=== PATIENT | female | born 1940 | race Caucasian/White ===

== ENCOUNTER 2017-10-25 15:27 | Emergency (ER) | payer MEDICARE, OTHER ==
--- NOTE | 2017-10-26 08:43 | CT ---
INDICATION: Lightheaded, increased blood pressure. CT HEAD WITHOUT CONTRAST: Serial contiguous 2.5 and 5-mm sections were obtained through the brain, 10/25/2017. No comparisons were available. Total Exam DLP = 949.36 mGy-cm. No shift of midline structures or ventricular abnormalities were identified. There are noted calcifications in the internal carotid and vertebral arteries. There is suggestion of a few tiny areas of decreased density in the white matter periventricular, suggesting minimal microvascular disease. However, no other abnormal areas of density could be identified. No bleeding site or hematoma was seen. The orbits appear to be grossly intact. Paranasal sinuses and mastoid air cells appear to be well aerated. No cranial abnormality was seen. IMPRESSION: 1. No acute intracranial abnormality. 2. Minimal microvascular disease with calcifications noted in the internal carotid and vertebral arteries. MTDD
--- NOTE | 2017-10-26 11:00 | CR ---
INDICATION: Lightheaded. CHEST: An AP upright portable view of the chest was obtained, 10/25/2017 - no comparisons. The heart appears enlarged with LVE. The aorta is tortuous with calcification in the arch. Overlying EKG leads are noted. Diminished bone density is suggested, compatible with osteoporosis - correlate clinically. A definite active infiltrate or effusion was not identified. Upper lung field pulmonary vasculature is minimally prominent to normal. This may represent a minimal or early CHF and should be correlated clinically. There appears to have been a mastectomy on the right and axillary node dissection on the right, compatible with previous right breast CA. No definite evidence of metastatic disease was identified. IMPRESSION: ASHD, probable cardiomegaly, question minimal or early CHF. Findings may be emphasized by poor inspiration - full inspiration PA and lateral views of the chest recommended when clinically possible, for further evaluation. MTDD
--- NOTE | 2017-10-27 01:43 | ER ---
DATE SEEN: 10/25/2017 TIME SEEN: The patient was seen at 1730 hours. /[id number] MÓNICA/CORBY WILL
--- NOTE | 2017-10-27 11:56 | ER ---
DATE SEEN: 10/25/2017 HISTORY OF PRESENT ILLNESS: This 77-year-old woman was attended by the daughter and daughter notes she was lightheaded. She was brought to the hospital for further evaluation. She is basically living alone, although her grandson "lives with her". The grandson works in the daytime and is with his grandmother in the evenings. No history of falls. No history of fever. No history of sore throat, cough, sinus congestion, chest pain, irregular heartbeat, abdominal discomfort, pedal edema. Daughter thinks perhaps she might be dehydrated. She noticed when her mother sat down she was short of breath and she had anxiety. 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 The school staff consequently brought her to the hospital for further evaluation. They noted her heart rate was 122, elevated, and she had a blood pressure of 180/110 at the school. PAST MEDICAL HISTORY: No diabetes, heart disease, myocardial infarction, no strokes, no recent illnesses or coughs or colds or pneumonia. Previous breast cancer, dyslipidemia, depression and arrhythmia, the family did not know what kind of arrhythmia she had, but it was very suggestive of ventricular arrhythmia and that is why she had flecainide and this can cause irregularity itself, and dermatitis. REVIEW OF SYSTEMS: Negative except as noted above in the HPI. ALLERGIES: Sulfa and diltiazem. MEDICATIONS: 1. Calcium carbonate. 2. Valproic acid. 3. Triamcinolone cream. 4. Aspirin. 5. Vitamin D. 6. Flecainide 50 mg b.i.d. 7. Hydrochlorothiazide 50 daily. 8. Multivitamin. 9. Potassium chloride 20 mEq daily. 10.Buspirone 10 mg. 11.Atorvastatin/Lipitor 20 mg daily. 12.Tamoxifen 20 mg daily. PHYSICAL EXAMINATION: VITAL SIGNS: Blood pressure 138/88, heart rate 96, respirations 20, repeat blood pressure 149/88, temperature 98.7, heart rate 120. Blood pressure checks - supine 130/73, 149/85, I don't see the list of orthostatic, but other blood pressure 149/78 and 133/40. Nurse's noted 102, 103 heart rate, on basis of the monitor, pulse was 120's electronic. Temperature 36.6 degrees centigrade. She has a BMI of 31.5 kg/m2. GENERAL: She is a pleasant woman, who gets lightheaded when she sits up and lies down. HEENT: TMs negative. Pharynx is mildly dry. Mucosa dry. No bruits in neck. No cervical adenopathy. No thyromegaly. LUNGS: Clear. There are no rales in the lungs. HEART: S1, S2. There is sinus tachycardia and increases with sitting up. ABDOMEN: Soft. No guarding. No abdominal discomfort. No bruits. EXTREMITIES: Lower extremities without abnormality. No pedal edema. Dorsalis pedis pulses and radial pulses intact and good. No CVA percussion tenderness. WORKING DIAGNOSIS: Probably dehydration causing orthostatism and lightheadedness. A CT was performed, but had no evidence for CVA. LABORATORY FINDINGS: Not very revealing, no evidence for anemia, which is encouraging at 13.8 hemoglobin, white count was normal 6800, with normal PMNs 75, lymphs 17, monos 7. CMP was normal relatively speaking sodium 140, potassium 3.5 (low normal potassium), chloride 104, carbon dioxide 29, BUN 18, creatinine 0.7, GFR greater than 60. BUN and creatinine ratio confirms dehydration at 25.7. AST 27-not significant, Troponin less than 0.017 and BNP is 889 (not significant for her age). Urinalysis normal. Specific gravity 1.010 and pH 8.0. ASSESSMENT: Orthostatism secondary to dehydration. No evidence for CVA. No evidence for myocardial infarction, anemia, or GI bleed. Chest x-ray with cardiomegaly. Mild cephalization. An EKG demonstrates sinus tachycardia, right bundle branch block, left anterior herve block, left ventricular hypertrophy. CT of the head did not reveal any abnormalities. No CVA. No evidence for urinary tract infection. The patient was treated with rehydration. Her orthostatism stabilized. No evidence for myocardial infarction and no significant congestive heart failure. No CVA. Patient did well with IV rehydration in the emergency department and lightheadedness relented. The patient is to drink 2 L of fluid a day. Follow up with doctor in a week. No medications prescribed. /[id number] MÓNICA/CORBY
== END 2017-10-25 20:00 | disposition home or self-care (01) ==
LOC: FB.ED 15:27
DX: I95.1 Orthostatic hypotension (principal); E86.0 Dehydration; R00.0 Tachycardia, unspecified; I51.7 Cardiomegaly; I45.10 Unspecified right bundle-branch block; I44.4 Left anterior fascicular block; E78.5 Hyperlipidemia, unspecified; Z88.2 Allergy status to sulfonamides; Z88.8 Allergy status to other drugs, medicaments and biological substances; Z79.899 Other long term (current) drug therapy; Z85.3 Personal history of malignant neoplasm of breast
CPT/HCPCS: 36415; 70450; 71045; 80053; 81001; 83880; 84484; 85025; 93005; 99285

== ENCOUNTER 2019-06-12 07:55 | Day surgery (SDC) | payer MEDICARE, OTHER ==
[2019-06-12] MEDS ORDERED: fentaNYL 100 MCG/2 ML SDV IV ONE (07:56)
[2019-06-12] MEDS ORDERED: Midazolam 1 MG/ML 2 ML SDV IV ONE (07:56)
[2019-06-12] MEDS ORDERED: Sodium Chloride 0.9% 10 ML Syringe FLUSH PRN (08:15)
[2019-06-12] MEDS ORDERED: Lactated Ringers 1,000 ML IV PRN (08:15)
--- NOTE | 2019-06-13 09:01 | OR ---
DATE OF OPERATION: 06/12/2019 SURGEON: Steffany Nunez MD PREOPERATIVE DIAGNOSIS: Visually significant cataract, right eye. POSTOPERATIVE DIAGNOSIS: Visually significant cataract, right eye. PROCEDURES PERFORMED: Phacoemulsification with intraocular lens placement, right eye. ASSISTANTS: None. ANESTHESIA: Local with sedation. COMPLICATIONS: None. FINDINGS: Pseudoexfoliation. BLOOD LOSS: None. IMPLANTS: Chip AU00T0 26.0 diopter lens, serial number [id number], implanted. CDE: 3.15. DESCRIPTION OF PROCEDURE: After risks and benefits were reviewed with the patient, consent was obtained in the preoperative area, and the operative eye was marked with a surgical pen. In the preoperative area, a pledget was used to dilate the pupil consisting of a mixture of phenylephrine 10%, cyclopentolate 2%, moxifloxacin 0.5%, and bupivacaine 0.75%. The patient was taken to the operating room, where a time-out was performed, and the patient was placed under monitored anesthesia care. Topical tetracaine was used for anesthesia. The operative eye was prepped and draped for ophthalmic surgery, and the microscope was brought into position and focussed. A paracentesis incision was made, followed by injection of preservative-free 1% lidocaine into the anterior chamber, followed by injection of Viscoat into the anterior chamber. A microkeratome blade was used to make a corneal limbal incision temporarily. A cystotome was used to make the beginning of the capsulorrhexis, which was carried around 360 degrees in a curvilinear fashion using Utrata forceps. A Alvarez cannula with BSS was used to hydrodissect and hydrodelineate the nucleus. The nucleus was removed in a divide and conquer manner using phacoemulsification. Irrigation and aspiration were used to remove the remaining cortical material. Provisc was used to inflate the capsular bag, and a pre-loaded AU00T0 26.0 diopter lens, serial number [id number] was injected into the capsular bag. A Sinskey hook was used to position and center the lens. Next, irrigation and aspiration was used to remove any remaining viscoelastic and cortical material from the anterior chamber. BSS on a cannula was used to inflate the anterior chamber and hydrate the wound. The wound was checked and found to be watertight. 1 mg of Moxifloxacin was injected into the anterior chamber. Drapes were removed and the eye was cleaned. A drop of brimonidine 0.15% and a drop of TobraDex was placed. The eye was shielded, and the patient was taken to the recovery room in stable condition. /[id number] TESS/CORBY CC: EMELIA DIAZ CNP [facility]
== END 2019-06-12 11:35 | disposition home or self-care (01) ==
LOC: FB.SDS 07:55
PROVIDERS: ATTEND Ophthalmology
DX: H26.9 Unspecified cataract (principal); I10 Essential (primary) hypertension; I47.1 Supraventricular tachycardia; E78.2 Mixed hyperlipidemia; F41.9 Anxiety disorder, unspecified; K21.9 Gastro-esophageal reflux disease without esophagitis; E66.9 Obesity, unspecified; Z79.82 Long term (current) use of aspirin; Z79.899 Other long term (current) drug therapy; Z88.8 Allergy status to other drugs, medicaments and biological substances; Z88.2 Allergy status to sulfonamides; Z68.32 Body mass index [BMI] 32.0-32.9, adult
CPT/HCPCS: 00142; 66984; J2250; J3010